=== PATIENT | male | born 1995 | race Caucasian/White ===

== ENCOUNTER → 2023-03-21 | Outpatient (CLI) | payer OTHER | END | disposition home or self-care (01) | LOC: RADPV 09:56 | PROVIDERS: ATTEND Chiropractor | DX: I34.0 Nonrheumatic mitral (valve) insufficiency (principal); R00.1 Bradycardia, unspecified; R00.2 Palpitations; R07.9 Chest pain, unspecified | CPT/HCPCS: 71046; 93005; 93306 ==